=== PATIENT | female | born 1980 | race Caucasian/White ===

== ENCOUNTER 2019-11-23 17:20 | Emergency (ER) | payer OTHER ==
[2019-11-23 17:46] VITALS: BP 112/65
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
== END 2019-11-23 20:47 | disposition home or self-care (01) ==
LOC: ER 17:20
DX: S02.2XXA Fracture of nasal bones, initial encounter for closed fracture (principal); W50.0XXA Accidental hit or strike by another person, initial encounter; Y92.59 Other trade areas as the place of occurrence of the external cause; Y99.0 Civilian activity done for income or pay
CPT/HCPCS: 70160; 99283